=== PATIENT | male | born 1950 | race African-American/Black ===

== ENCOUNTER 2017-10-31 11:17 | Emergency (ER) | payer OTHER, MEDICARE ==
[~2017-10-31] VITALS: Ht 182.9 cm; Wt 61.0 kg
[2017-10-31 16:04] VITALS: BP 171/62
== END 2017-10-31 16:06 | disposition home or self-care (01) ==
LOC: ER 12:14
DX: M13.812 Other specified arthritis, left shoulder (principal); R03.0 Elevated blood-pressure reading, without diagnosis of hypertension
CPT/HCPCS: 73110; 73130; 99284